=== PATIENT | male | born 1980 | race Two or more races ===

== ENCOUNTER 2019-01-01 18:31 | Emergency (ER) | payer SELFPAY ==
[2019-01-01 18:57] VITALS: BP 131/88; PULSE 87; TEMP 98.7; BMI 37.8
--- NOTE | 2019-01-01 18:57 | PDOC ---
Rapid Medical Evaluation Time Seen by Provider: 01/01/19 18:54 Medical Evaluation: Allergies Allergy/AdvReac Type Severity Reaction Status Date / Time No Known Allergies Allergy Verified 04/14/17 10:10 01/01/19 18:54 Pt presents to the ER with low back pain starting yesterday while walking. He states he has pain across the low back. Denies saddle anesthesia, bladder/bowel incontinence. Pt also works in construction Exam: TTP of the b/l paraspinous muscles. appears uncomfortable Orders: nothing Pt to proceed to the ER for evaluation Discharge Disposition - Diagnosis Back pain - Referrals - Patient Instructions - Post Discharge Activity
[2019-01-01] MEDS ORDERED: KETOROLAC TROMETHAMINE 60 MG/2 ML VIAL IM ONE (19:40)
--- NOTE | 2019-01-01 19:43 | PDOC ---
History of Present Illness - General Chief Complaint: Back Pain Stated Complaint: BACK PAIN Time Seen by Provider: 01/01/19 18:54 - History of Present Illness Initial Comments: 01/01/19 19:41 38-year-old male without comorbidities presents for evaluation of lower back pain without radicular symptoms times one day. No systemic symptoms. Minimally relieved with ibuprofen yesterday. Past History - Past Medical History Allergies/Adverse Reactions: Allergies Allergy/AdvReac Type Severity Reaction Status Date / Time No Known Allergies Allergy Verified 04/14/17 10:10 Home Medications: Ambulatory Orders Naproxen [Naprosyn -] 500 mg PO BID PRN #14 tablet 04/14/17 Cyclobenzaprine HCl [Flexeril 10 mg] 10 mg PO HS PRN #10 tablet 01/01/19 Ibuprofen [Motrin -] 600 mg PO TID #30 tablet 01/01/19 COPD: No - Immunization History Immunization Up to Date: No - Suicide/Smoking/Psychosocial Hx Smoking Status: No Smoking History: Never smoked Have you smoked in the past 12 months: No Number of Cigarettes Smoked Daily: 0 Information on smoking cessation initiated: No Hx Alcohol Use: No Drug/Substance Use Hx: No Substance Use Type: None Review of Systems - Review of Systems Musculoskeletal: Yes: Back Pain *Physical Exam - Vital Signs Last Vital Signs Temp Pulse Resp BP Pulse Ox 98.7 F 87 16 131/88 100 01/01/19 18:55 01/01/19 18:55 01/01/19 18:55 01/01/19 18:55 01/01/19 18:55 - Physical Exam Comments: 01/01/19 19:41 Lumbar spine skin color and temperature are normal. Range of motion is slightly limited. No midline tenderness. Moderate paralumbar musculature spasm and tenderness. 5 out of 5 strength bilateral lower extremities without gross sensory motor deficits negative straight leg raise test thighs and calves are soft and nontender. Neurovascular intact. Medical Decision Making - Medical Decision Making 01/01/19 19:41 Lower back strain. Motrin and Flexeril follow-up with neurosurgery. *DC/Admit/Observation/Transfer Diagnosis at time of Disposition: Back pain - Discharge Dispostion Disposition: HOME Condition at time of disposition: Stable Decision to Admit order: No - Prescriptions Prescriptions: Cyclobenzaprine HCl [Flexeril 10 mg] 10 mg PO HS PRN #10 tablet PRN Reason: Muscle Spasms Ibuprofen [Motrin -] 600 mg PO TID #30 tablet - Referrals Referrals: Candelaria Medrano MD [Primary Care Provider] - Chuck Travis MD, [facility] [Staff Physician] - - Patient Instructions Printed Discharge Instructions: Low Back Pain, DI for Low Back Pain Additional Instructions: In the emergency room today you are given an injection of a long-acting anti- inflammatory. Please start the Motrin prescription strength tomorrow one tablet 3 times a day with food. Do not take any other anti-inflammatories while on the prescription strength Motrin. He may take Tylenol in addition for pain if she needed. Please take the Tylenol as directed. The muscle relaxers one tablet at bedtime and will make you sleepy. Return to the emergency room for worsening symptoms and follow-up with spine surgery for further evaluation and treatment options. - Post Discharge Activity
[2019-01-01] MEDS ORDERED: KETOROLAC TROMETHAMINE 60 MG/2 ML VIAL ONE (19:54)
== END 2019-01-01 20:09 | disposition home or self-care (01) ==
LOC: JERFT 18:31
PROC: 3E0233Z Introduction of Anti-inflammatory into Muscle, Percutaneous Approach (ICD-10-PCS; principal; 2019-01-01)
DX: M54.5 Low back pain (principal)
CPT/HCPCS: 99281-25